=== PATIENT | male | born 1965 | race American Indian/Alaskan Native ===

== ENCOUNTER 2017-02-07 18:29 | Emergency (ER) | payer OTHER ==
[2017-02-07 18:48] VITALS: BP 154/95
[2017-02-07] MEDS ORDERED: Diphtheria,Pertussis(Acell),Tetanus Vaccine 0.5 ML SDV IM ONE (18:54)
--- NOTE | 2017-02-07 18:57 | EDM.PDOC ---
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 Denies LOC. has hematoma to top of head with mild abrasion. no other complaints. (Teressa Ruiz) - Related Data Allergies Allergy/AdvReac Type Severity Reaction Status Date / Time No Known Allergies Allergy Verified 02/07/17 18:48 Home Meds: Home Meds . [No Known Home Meds] 02/07/17 [History] Past Medical History - Past Health History Medical/Surgical History: Denies Medical/Surgical History <Teressa Ruiz - Last Filed: 02/07/17 19:09> Social & Family History - Tobacco Use Smoking Status *Q: Never Smoker Second Hand Smoke Exposure: Yes - Caffeine Use Caffeine Use: Reports: Coffee, Soda - Alcohol Use Date of Last Drink: 02/07/17 Time of Last Drink: 16:00 - Recreational Drug Use Recreational Drug Use: No <Teressa Ruiz - Last Filed: 02/07/17 19:09> ED ROS GENERAL - Review of Systems Review Of Systems: ROS reveals no pertinent complaints other than HPI. <Teressa Ruiz - Last Filed: 02/07/17 19:09> ED EXAM, HEAD INJURY - Physical Exam Exam: See Below Exam Limited By: No Limitations General Appearance: Alert, WD/WN, No Apparent Distress Head: Normocephalic, Scalp Abrasions, Scalp Hematoma Nexus Criteria: No: Posterior, Midline Cervical Tenderness, Evidence of Intoxication, Altered Level of Consciousness, Focal Neurological Deficit, Painful Distraction Injuries Eyes: Bilateral Eye: PERRL Nose: Normal Inspection, Normal Mucousa, No Blood Throat/Mouth: Normal Inspection, Normal Lips, Normal Teeth, Normal Gums, Normal Oropharynx, Normal Voice, No Airway Compromise Neck: Non-Tender, Full Range of Motion, Normal Alignment, Normal Inspection Respiratory: No Respiratory Distress, Lungs Clear, Normal Breath Sounds, No Accessory Muscle Use, Chest Non-Tender Cardiovascular: Normal Peripheral Pulses, Regular Rate, Rhythm, No Edema, No Gallop, No JVD, No Murmur, No Rub Neurologic: glass handler II-XII nml As Tested, No Motor/Sensory Deficits, Alert, Normal Mood/Affect, Oriented x 3 Skin: Normal Color, Warm/Dry - [place] Coma Score Best Eye Response (Elise): (4) Open Spontaneously Best Verbal Response (Elise): (5) Oriented Best Motor Response (Elise): (6) Obeys Commands <Teressa Ruiz - Last Filed: 02/07/17 19:09> Course <Teressa Ruiz - Last Filed: 02/07/17 19:09> <Angie Simon - Last Filed: 02/07/17 19:55> - Vital Signs Last Recorded V/S: Last Vital Signs Temp 96.8 F 02/07/17 18:37 Pulse 64 02/07/17 18:37 Resp 18 02/07/17 18:37 BP 154/95 H 02/07/17 18:37 Pulse Ox 100 02/07/17 18:37 (Teressa Ruiz) (Angie Simon) - Orders/Labs/Meds Orders: Active Orders 24 hr Category Date Time Status Vaccines to be Administered [RC] PER UNIT ROUTINE Care 02/07/17 18:54 Active (Teressa Ruiz) (Angie Simon) Meds: Medications Discontinued Medications Generic Name Dose Route Start Last Admin Trade Name Freq PRN Reason Stop Dose Admin Diphtheria/Tetanus/Acell Pertussis 0.5 ml 02/07/17 18:54 02/07/17 18:59 Adacel IM 02/07/17 18:55 0.5 ml .ONCE ONE Administration (Angie Simon) - Radiology Interpretation Free Text/Narrative:: CT head negative (Angie Siomn) - Re-Assessments/Exams Free Text/Narrative Re-Assessment/Exam: 02/07/17 19:53 Awake alert, continues with ice to scalp, no other c/o voiced . Discharge home, CT results reviewed with patient and family. (Angie Simon) Departure <Teressa Ruiz - Last Filed: 02/07/17 19:09> - Departure Time of Disposition: 19:48 Condition: Fair <Angie Simon - Last Filed: 02/07/17 19:55> - Departure Disposition: Home, Self-Care 01 Clinical Impression: Scalp contusion Qualifiers: Encounter type: initial encounter Qualified Code(s): S00.03XA - Contusion of scalp, initial encounter - Discharge Information Instructions: Head Injury, Adult, [id number] Forms: ED Department Discharge Additional Instructions: tylenol 650mg every 4 hours as needed for discomfort rest head injury instructions follow up if any changes noted, dizziness, repeated vomiting, blurred vision ice pack to bruised area
== END 2017-02-07 19:57 | disposition home or self-care (01) ==
LOC: DL.ED 18:29
DX: S00.03XA Contusion of scalp, initial encounter (principal); Z23 Encounter for immunization; W20.8XXA Other cause of strike by thrown, projected or falling object, initial encounter
CPT/HCPCS: 70450; 90471; 90715; 99283

== ENCOUNTER → 2018-12-11 | Outpatient (CLI) | payer OTHER ==
[~2018-12-11] MED LIST: Iopamidol 755 Mg/ML 100 ML Bottle IVPUSH ONE
--- NOTE | 2018-12-11 16:54 | CT ---
Clinical history: 53-year-old 246 pound male with "harsh" cough and shortness of breath unresolved with antibiotic/steroid nebulizer treatments. Rule out pulmonary embolism/infarct or other underlying abnormality this nonsmoker. Scan technique: Volume acquisition of data chest (bony thorax, lungs and mediastinum obtained during intravenous ministration 80 mL nonionic Isovue 370 contrast (5 cc/s via injector) while patient was lying supine on the Siemens multi slice scanner [place], [place]. All data archived in the PACS system for storage, reformatting axial/sagittal/coronal planes and study. Interpretation: Negative exam. 1. No sign of intraluminal echogenic thrombus or blood clot within pulmonary artery circulation. No abnormal areas of focal lobar oligemia. No focal lobar atelectasis/collapse or peripheral pleural-based segmental infarct. No effusions. 2. No sign of lung mass and no hilar or mediastinal lymphadenopathy. No pneumonic infiltrates or atelectasis. 3. Normal cardiac silhouette. No pericardial effusion. No cephalization of vascular flow, alveolar edema or pleural effusion. 4. Normal caliber thoracic aorta. No aneurysm or dissection. 5. Mild kyphosis and multilevel lower cervical/thoracic disc disease with chronic hypertrophic marginal spondylosis. 6. Fatty liver. Spleen and left adrenal gland unremarkable. CONCLUSION: No current evidence pulmonary embolism or infarct. No sign of heart failure, lung mass or lobar pneumonia.
== END ==
LOC: DL.CT 10:46
PROVIDERS: ATTEND Family Medicine
DX: R05 Cough (principal); R06.02 Shortness of breath
CPT/HCPCS: 71260; Q9967